=== PATIENT | female | born 1965 | race Caucasian/White ===

== ENCOUNTER 2021-12-07 11:31 | Outpatient (CLI) | payer OTHER, SELFPAY ==
--- NOTE | 2021-12-07 11:51 | USCV_ITS ---
Valerio Eula Age: 56 Gender: F : 1965 Exam Date: 12/07/2021 12:13 Ordering Phys: Kt Painting MD Technologist: Car Barcenas Exam Location: [facility] [place] Indication: bruit Risk Factors: Previous Vascular Surgery: Right Brachial BP: / Left Brachial BP: / Right Left Velocity (cm/s) Spectral Plaque Velocity (cm/s) Spectral Plaque Syst/Diast Broadening Syst/Diast Broadening 60.60/ 13.20 Prox CCA 77.80 / 24.80 68.40/ 21.80 Mid CCA 72.60 / 21.40 61.40/ 16.30 Distal CCA 65.80 / 23.10 81.60/ 20.90 Prox ICA 105.80/ 29.80 61.80/ 22.70 Mid ICA 86.00 / 37.50 67.40/ 22.10 Distal ICA 73.40 / 32.40 190.70 ECA 90.40 0.90 ICA/CCA 1.18 Antegrade Vertebral Antegrade 49.60/ 11.00 cm/s 57.30/ 22.10 cm/s Tri Subclavian Tri 96.60 85.40 CONCLUSIONS Right ICA stenosis <50%. Mild atheromatous plaque right carotid bulb/ICA. Left ICA stenosis <50%. Moderate atheromatous plaque left carotid bulb/ICA. Normal antegrade Doppler flow noted in the right vertebral artery. Normal antegrade Doppler flow noted in the left vertebral artery. Bipin Solis MD (Electronically Signed) Final Date: 07 Dec 2021 17:10 S
== END 2021-12-07 11:32 | disposition home or self-care (01) ==
LOC: RAD 11:37
PROVIDERS: Visit Provider Family Medicine
DX: R09.89 Other specified symptoms and signs involving the circulatory and respiratory systems (principal)
CPT/HCPCS: 93880

== ENCOUNTER 2022-02-24 12:51 | Outpatient (CLI) | payer OTHER, SELFPAY ==
--- NOTE | 2022-02-24 13:04 | MM_ITS ---
WS: [id number] BILATERAL 3D TOMOSYNTHESIS DIGITAL SCREENING MAMMOGRAPHY WITH CAD CLINICAL INFORMATION: SCREENING HISTORY: Screening mammogram. No current complaints. COMPARISON: None. TECHNIQUE: Bilateral CC and MLO views. FINDINGS: Scattered fibroglandular densities bilaterally. Incidental punctate calcifications LEFT breast. Asymm etric density upper outer superior LEFT breast with a few adjacent calcifications. Recommend spot com pression views and ultrasound in further evaluation RIGHT breast is unremarkable. MM/[place] [id number] IMPRESSION: BI-RADS: 0-Incomplete: Need additional imaging evaluation FOLLOW UP: Need Additional Imaging Recommend LEFT breast diagnostic mammography with spot compression views and ul trasound in further evaluation.
== END 2022-02-24 12:52 | disposition home or self-care (01) ==
LOC: RAD 12:52
PROVIDERS: PCP Family Medicine; Visit Provider Family Medicine
DX: Z12.31 Encounter for screening mammogram for malignant neoplasm of breast (principal)
CPT/HCPCS: 77063; 77067

== ENCOUNTER 2022-03-24 07:28 | Day surgery (SDC) | payer OTHER, SELFPAY ==
[2022-03-22 13:06] VITALS: BMI 21.0
[2022-03-24 07:44] VITALS: TEMP 36.2
[2022-03-24] MEDS: sodium chloride 0.9% 1,000 ML 30 ML IV (07:55)
--- NOTE | 2022-03-24 08:30 | P.HP_ITS ---
Same Day Surgery H&P Indication for Procedure/HPI DATE OF PROCEDURE: March 24, 2022 CHIEF COMPLAINT/INDICATIONFOR SURGICAL PROCEDURE: Screening colonoscopy PREOP DIAGNOSIS: Screening colonoscopy PLANNED PROCEDURE: Operation Date: 03/24/22 08:45 Proposed Procedures p Colonoscopy 37400,Z12.11(Not Applicable) - Jeffrey Jose MD This is a pleasant 56 years old female patient referred to my practice for screening colonoscopy ,patient denies any bleeding per rectum and she reports her mom had history of colon cancer around the age of 60. ROS All systems have been reviewed negative except as for the above or per problem list. Medications/Allergies* Home Medications Medication Instructions Recorded Confirmed Type lisinopril 20 1 tab PO DAILY 01/07/22 03/24/22 History mg-hydrochlorothiazide 12.5 mg tablet acetaminophen 325 mg tablet 325 mg PO QID PRN Headache 02/10/22 03/24/22 History (Tylenol) ignacio (Zingiber officinalis) 500 500 mg PO DAILY 02/10/22 03/24/22 History mg capsule multivitamin with minerals 1 tab PO DAILY 02/10/22 03/24/22 History (Hair,Skin and Nails) omega-3 fatty acids 1,000 mg 1,000 mg PO DAILY 02/10/22 03/24/22 History capsule vit C 133.3 1 tab PO DAILY 02/10/22 03/24/22 History hz-vthtvqneacsd-wewjuqw-elderberry 16.7 mg chewable tablet Allergies/Adverse Reactions Allergy/AdvReac Type Severity Reaction Status Date / Time clindamycin AdvReac Mild felt Verified 03/24/22 08:51 strange Current Medications: Generic Name Dose Route Start Last Admin Trade Name Freq PRN Reason Stop Dose Admin Sodium Chloride 1,000 mls @ 30 mls/hr 03/24/22 07:45 03/24/22 07:55 Sodium Chloride 0.9% IV 03/25/22 07:44 30 mls/hr .Q24H KATE Administration Pertinent Exam Findings alert, oriented x 3, clear to auscultation bilaterally, regular rate & rhythm and procedure specific exam findings (Abdominal exam nontender nondistended soft) Recommendations Surgery/Procedure today (Colonoscopy with possible biopsy) Other Plans: Plan of care; After thorough history and physical examination and reviewing the chart, plan to perform screening colonoscopy. I discussed with the patient in details the risks,benefits,alternatives and indications.The risk of aspiration, bleeding, soft tissue injury, perforation of the colon and other potential concomitant complications were explained to the patient in details,also the potential need for Laproscoy/Laparotomy to repair any related complications including but not limited to colectomy and or Closotomy.The patient understood this well and did agree to proceed. Rationale was carefully and clearly discussed with the patient.Appropriate informed consent have been reviewed and signed All questions have been answered and all concerns have been addressed to patient's satisfaction. Verbal and written Instructions were given to the patient for colonoscopy prep Coding Level of Care Code Acute Recordak Operator for Megan Parra
--- NOTE | 2022-03-24 08:40 | ANES.PREANE2 ---
Pre-Anesthetic Assessment Height/Weight: Height 1.57 m Weight 52.163 kg Temp 97.2 F L 03/24/22 07:44 Preop Diagnosis: Screening colonoscopy Operation Date: 03/24/22 08:45 Proposed Procedures p Colonoscopy 27281,Z12.11(Not Applicable) - Jeffrey Jose MD Last intake: Intake Last Liquid Date 03/23/22 Last Liquid Time 22:30 Last Solid Date 03/22/22 Last Solid Time 00:00 Exam alert, oriented x 3, clear to auscultation bilaterally and regular rate & rhythm History/ROS No significant history except as noted Pulmonary recent respiratory infection, improving Anesthetic Plan ASA status: 2 Anesthesia: Anesthesia Evaluation and MAC Risk of > 500 ml blood loss (7ml/kg in children): Yes, adequate IV access and fluids planned Medications/Allergies Home Medications Medication Instructions Recorded Confirmed Last Taken Type lisinopril 20 1 tab PO DAILY 01/07/22 03/24/22 03/23/22 History mg-hydrochlorothiazide 12.5 mg tablet acetaminophen 325 mg tablet 325 mg PO QID PRN Headache 02/10/22 03/24/22 Unknown History (Tylenol) ignacio (Zingiber officinalis) 500 500 mg PO DAILY 02/10/22 03/24/22 03/23/22 History mg capsule multivitamin with minerals 1 tab PO DAILY 02/10/22 03/24/22 03/23/22 History (Hair,Skin and Nails) omega-3 fatty acids 1,000 mg 1,000 mg PO DAILY 02/10/22 03/24/22 03/23/22 History capsule vit C 133.3 1 tab PO DAILY 02/10/22 03/24/22 03/23/22 History zm-epxbmoufiwyg-kfejqya-elderberry 16.7 mg chewable tablet Allergies Allergy/AdvReac Type Severity Reaction Status Date / Time clindamycin AdvReac Mild felt Verified 03/22/22 13:01 strange Current Medications Generic Name Dose Route Start Last Admin Trade Name Freq PRN Reason Stop Dose Admin Sodium Chloride 1,000 mls @ 30 mls/hr 03/24/22 07:45 03/24/22 07:55 Sodium Chloride 0.9% IV 03/25/22 07:44 30 mls/hr .Q24H KATE Administration Data Anesthesia Cardiac Studies: No Data to Display
--- NOTE | 2022-03-24 09:09 | ANES.PREANE2 ---
Pre-Anesthetic Assessment Height/Weight: Height 1.57 m Weight 52.163 kg Temp 97.2 F L 03/24/22 07:44 Preop Diagnosis: Screening colonoscopy Operation Date: 03/24/22 08:45 Proposed Procedures p Colonoscopy 91860,Z12.11(Not Applicable) - Jeffrey Jose MD Familial anesthetic complications: none Was Beta Milena taken within 24 hours: N/A Was Clonidine taken within 24 hours: N/A Last intake: Intake Last Liquid Date 03/23/22 Last Liquid Time 22:30 Last Solid Date 03/22/22 Last Solid Time 00:00 Social Tobacco and No alcohol Exam alert, oriented x 3 and regular rate & rhythm Airway Submandibular: within normal limits Cervical ROM: within normal limits Mallampati: Class II Dentition: partials Pulmonary Chronic Obstructive Pulmonary Disease Anesthetic Plan ASA status: 2 Anesthesia: MAC Medications/Allergies Home Medications Medication Instructions Recorded Confirmed Last Taken Type lisinopril 20 1 tab PO DAILY 01/07/22 03/24/22 03/23/22 History mg-hydrochlorothiazide 12.5 mg tablet acetaminophen 325 mg tablet 325 mg PO QID PRN Headache 02/10/22 03/24/22 Unknown History (Tylenol) ignacio (Zingiber officinalis) 500 500 mg PO DAILY 02/10/22 03/24/22 03/23/22 History mg capsule multivitamin with minerals 1 tab PO DAILY 02/10/22 03/24/22 03/23/22 History (Hair,Skin and Nails) omega-3 fatty acids 1,000 mg 1,000 mg PO DAILY 02/10/22 03/24/22 03/23/22 History capsule vit C 133.3 1 tab PO DAILY 02/10/22 03/24/22 03/23/22 History gm-zflmcyzestgm-vvtzwda-elderberry 16.7 mg chewable tablet Allergies Allergy/AdvReac Type Severity Reaction Status Date / Time clindamycin AdvReac Mild felt Verified 03/24/22 08:51 strange Current Medications Generic Name Dose Route Start Last Admin Trade Name Freq PRN Reason Stop Dose Admin Sodium Chloride 1,000 mls @ 30 mls/hr 03/24/22 07:45 03/24/22 07:55 Sodium Chloride 0.9% IV 03/25/22 07:44 30 mls/hr .Q24H KATE Administration Data Anesthesia Cardiac Studies: No Data to Display
[2022-03-24 09:27] VITALS: BP 89/55; PULSE 73; RESP 18; TEMP 36.1; O2SAT 96
[2022-03-24 09:42] VITALS: BP 124/74; PULSE 73; RESP 18; O2SAT 96
[2022-03-24 09:53] VITALS: BP 106/72; PULSE 81; RESP 18; O2SAT 99
== END 2022-03-24 10:06 | disposition home or self-care (01) ==
PROVIDERS: PCP Family Medicine; Visit Provider Surgery
PROC: 0DJD8ZZ Inspection of Lower Intestinal Tract, Via Natural or Artificial Opening Endoscopic (ICD-10-PCS; CPT 45378; principal; 2022-03-24 08:45)
DX: Z12.11 Encounter for screening for malignant neoplasm of colon (principal); K57.30 Diverticulosis of large intestine without perforation or abscess without bleeding
CPT/HCPCS: 45378; J2704; J7030

== ENCOUNTER 2022-04-28 11:22 | Outpatient (CLI) | payer OTHER, SELFPAY ==
--- NOTE | 2022-04-28 11:52 | MM_ITS ---
WS: [id number] LEFT 3D TOMOSYNTHESIS DIGITAL MAMMOGRAPHY WITH CAD CLINICAL INFORMATION: ASSYMETRIES COMPARISON: February 24, 2022 TECHNIQUE: 3 views of the left breast were obtained. FINDINGS: Scattered fibroglandular densities of the left breast. Previously described small asymmetric density upper outer LEFT breast. A few adjacent calcifications is unchanged. Ultrasound is pending. ULTRASOUND BREAST LEFT TECHNIQUE: Ultrasound left breast focused area of concern. CLINICAL INFORMATION: ASSYMETRIES FINDINGS: Ultrasound LEFT breast 11 to 2:00 position. Small lymph node 2:00 position 2 cm in the nipple measuring 6 x 4 x 2 mm. No other suspicious findin gs. No cystic or solid lesions to target for biopsy. Recommend return to annual screening mammography . . MM/MM tomosynthesis diag [id number] IMPRESSION: BI-RADS: 2-Benign FOLLOW UP: 1 Year Follow-up Recommend return to annual screening mammography.
== END 2022-04-28 11:23 | disposition home or self-care (01) ==
PROVIDERS: PCP Family Medicine; Visit Provider Family Medicine
DX: N64.89 Other specified disorders of breast (principal)
CPT/HCPCS: 76642; 77061

== ENCOUNTER → 2023-05-17 13:17 | Outpatient (BNVA) | payer OTHER, SELFPAY | PROVIDERS: PCP Family Medicine; Visit Provider Clinical Nurse Specialist Adult Health | DX: R30.0 Dysuria (principal) | CPT/HCPCS: 81000; 87086 ==

== ENCOUNTER → 2024-10-30 14:44 | Outpatient (BNVA) | payer OTHER, SELFPAY | PROVIDERS: PCP Family Medicine; Visit Provider Emergency Medicine | DX: R39.9 Unspecified symptoms and signs involving the genitourinary system (principal) | CPT/HCPCS: 81000 ==